=== PATIENT | male | born 1990 | race Caucasian/White ===

== ENCOUNTER 2019-08-07 12:34 | Outpatient (CLI) | payer OTHER, SELFPAY ==
--- NOTE | 2019-08-07 | ECHO_ITS ---
Patient Info Name: Jessica Jiang Age: 29 years : 1990 Gender: Male Ht: 71 in Wt: 200 lbs BSA: 2.15 m2 HR: 60 bpm BP: 133 / 82 mmHg Heart Rhythm: Sinus Rhythm Exam Date: 08/07/2019 12:55 PM Exam Location: [facility] Patient Status: Outpatient Admit Date: 08/07/2019 Staff Ordering Physician: DelmarFlorentino MD [employer] Folder: Taisha Foster RDCS Attending Provider: DamionFlorentino MD Referring Physician: Delmar MYRICK; Exam Type: CA echo doppler color flow Study Info Indications R94.31 - Abnormal electrocardiogram ECG EKG Complete two-dimensional, color flow and Doppler transthoracic echocardiogram is performed. Summary 1. Left ventricular chamber size, wall thickness, systolic and diastolic function are normal with no regional wall motion abnormalities with an estimated ejection fraction of 65-70%. 2. Left atrial chamber dimension is mildly enlarged. 3. There is trace mitral and tricuspid valve regurgitation. 4. No pulmonary hypertension, estimated pulmonary arterial systolic pressure is 34 mmHg. 5. Normal sinus rhythm. Left Ventricle Left ventricular chamber dimension is normal. Left ventricular systolic function is normal, estimated at 65-70%. There is no increased left ventricular wall thickness. Left ventricular septal wall motion is normal. The left ventricular diastolic function is normal. Left ventricular chamber size, wall thickness, systolic and diastolic function are normal with no regional wall motion abnormalities with an estimated ejection fraction of 65-70%. Right Ventricle Right ventricular chamber dimension is normal. Right ventricular systolic function is normal. Left Atria Left atrial chamber dimension is mildly enlarged. Right Atria Right atrial chamber dimension is normal. Aortic Valve The aortic valve is trileaflet. There is no aortic valve sclerosis. There is no aortic valve stenosis. There is no aortic valve regurgitation. Pulmonic Valve The pulmonic valve is normal. There is no pulmonic valve stenosis. There is no pulmonic regurgitation. Mitral Valve The mitral valve has normal leaflets. There is no mitral valve stenosis. There is trace mitral and tricuspid valve regurgitation. Tricuspid Valve The tricuspid valve leaflets are normal. There is no significant tricuspid valve stenosis. There is trace tricuspid valve regurgitation. No pulmonary hypertension, estimated pulmonary arterial systolic pressure is 34 mmHg. Pericardium/Pleural The pericardium appears normal. There is no pericardial effusion. Inferior Vena Cava Normal inferior vena cava with >50% collapse upon inspiration consistent with Empty right atrial pressure, 10 mmHg. Aorta The aortic root size at the sinus of Valsalva is normal. The prox ascending aorta size is normal. Left Ventricular Outflow Tract Name Value Normal LVOT 2D LVOT Diameter 2.2 cm LVOT Doppler LVOT Peak Gradient 3 mmHg LVOT Mean Gradient 1 mmHg LVOT VTI 19 cm LVOT VTI/AV VTI Ratio
== END 2019-08-07 12:35 | disposition home or self-care (01) ==
LOC: ANHCARD 12:36
PROVIDERS: Visit Provider Specialist
DX: I48.91 Unspecified atrial fibrillation (principal); R94.31 Abnormal electrocardiogram [ECG] [EKG]; I51.7 Cardiomegaly
CPT/HCPCS: 93306